=== PATIENT | male | born 1940 | race Caucasian/White ===

== ENCOUNTER 2017-07-02 12:00 | Day surgery (SDC) | payer MEDICARE ==
[~2017-07-02] VITALS: Ht 175.3 cm; Wt 87.5 kg
[~2017-07-02 12:00] MED LIST: ASCO1500 PO; ASPI-973 PO; CHOL200047 PO; CYAN1TAB42 PO; MULTIVITA; OMEP20CA11 PO; SIMV40TA5 PO; Sodium Chloride LOK Flush 10 mL Syringe IV PRN; TIOT18CA3 IH; fentaNYL-PF 50 mCg/mL 2 mL Inj IVPUSH PRN
[2017-07-02 12:28] VITALS: BP 129/74; PULSE 64; RESP 12; O2SAT 93
[2017-07-02] MEDS: 0.9% Sodium Chloride 1,000 ML IV SCH ×2 (13:06→14:09)
[2017-07-02 14:32] VITALS: BP 142/69; PULSE 78; RESP 14; O2SAT 94
[2017-07-02 14:41] VITALS: BP 139/69; PULSE 72; RESP 14; O2SAT 94
--- NOTE | 2017-07-02 14:47 | ENDO ---
[address] [address] ENDOSCOPY PROCEDURE PATIENT: REBECCA HAINES : 1940 MR#: [id number] ADMIT: 07/02/2017 JOB ID: [id number] DATE: 07/02/2017 PRIMARY PROVIDER: Barney Valle M.D. PROCEDURE: Colonoscopy with hot snare polypectomy and cold snare polypectomy. INDICATIONS: A 77-year-old male with a personal history of colon polyps returning for surveillance. EQUIPMENT: PCF H 180 AL. SEDATION: 1. 2 mg Versed. 2. 50 mcg fentanyl. COMPLICATIONS: None identified. BOWEL PREPARATION: Fair, adequate examination. PROCEDURAL INFORMATION: After the risks and benefits were explained, written and verbal informed consent was obtained. The patient was brought into the endoscopy suite and placed into the left lateral decubitus position. Sedation was achieved using the above-stated medications with the addition of oxygen via nasal cannula. Digital rectal examination was accomplished. No significant pathology appreciated. The scope was introduced into the rectum and advanced to the cecum as identified by the appendiceal orifice and ileocecal valve. The scope was slowly withdrawn to carefully examine the mucosa for any defects or lesions. Retroflexed views were accomplished in the rectum. The colon was decompressed. The scope removed from the patient who tolerated the procedure well. FINDINGS: The patient had some moderate diverticulosis through the sigmoid region. There was an approximately 8 mm polyp sessile removed from the sigmoid by way of hot snare. There were six other smaller polyps removed from all throughout the colon using mostly hot snare and on the smaller one cold snare x1. These were submitted as "colon polyps." Retroflexed views from within the rectum were unremarkable. ENDOSCOPIC DIAGNOSES: 1. Multiple colon polyps. 2. Diverticulosis. 3. Mild hemorrhoids. RECOMMENDATIONS: 1. Await histopathology. 2. Repeat colonoscopy three years.
--- NOTE | 2017-07-07 16:52 | PATH ---
SURGICAL PATHOLOGY Attending Physician:Rocio Bucio CASE STATUS: Signed Out PATIENT NAME: REBECCA HAINES PID: [id number] : 1940 DATE COLLECTED:07/02/2017 00:00 SPECIMEN: 1: Colon, Polyp 2: Colon, Polyp CLINICAL HISTORY: 1). COLON POLYPS X6 2). SIGMOID COLON POLYP FINAL DIAGNOSIS: 1. Colon Polyps x6, Polypectomies: Tubular adenoma x6. 2. Sigmoid Colon Polyp, Polypectomy: Tubular adenoma. ICD10: D12.6 GROSS DESCRIPTION: Received two formalin-filled containers, each labeled with the patient' s name. 1. Received in formalin, labeled with the patient' s name and "colon polyp", are multiple fragments of hobbs, soft tissue ranging from 0.1 x 0.1 x 0.1 cm to 0.5 x 0.3 x 0.1 cm. The fragments are totally submitted in cassette 1A. 2. Received in formalin, labeled with the patient' s name and "sigmoid polyp", are four fragments of hobbs, soft tissue ranging from 0.2 x 0.1 x 0.1 cm to 0.6 x 0.5 x 0.4 cm. The larger fragment is bisected. All fragments are totally submitted in cassette 2A. [id number]) ICD-9 CODES: CPT CODES: 1: 17555 2: 17697 Electronically Signed Out Jay Holley MD, Ph.D. [facility], [place] [address] Technical component performed at [facility], [facility] [address], [place], [address]
== END 2017-07-02 23:59 | disposition home or self-care (01) ==
LOC: END 12:00
PROVIDERS: ATTEND Internal Medicine Gastroenterology
DX: Z12.11 Encounter for screening for malignant neoplasm of colon (principal); Z86.010 Personal history of colon polyps; D12.5 Benign neoplasm of sigmoid colon; D12.6 Benign neoplasm of colon, unspecified; K64.9 Unspecified hemorrhoids; K57.30 Diverticulosis of large intestine without perforation or abscess without bleeding; I10 Essential (primary) hypertension; I73.9 Peripheral vascular disease, unspecified; E78.5 Hyperlipidemia, unspecified; J44.9 Chronic obstructive pulmonary disease, unspecified; G47.33 Obstructive sleep apnea (adult) (pediatric); Z79.82 Long term (current) use of aspirin
CPT/HCPCS: 45385; 99153; G0500; J2250; J3010; J7030